=== PATIENT | female | born 1995 | race African-American/Black ===

== ENCOUNTER → 2022-12-07 | Outpatient (CLI) | payer BC, MEDICAID | END | disposition home or self-care (01) | LOC: RAH 14:17 | PROVIDERS: ATTEND Family Medicine Sports Medicine | DX: R20.2 Paresthesia of skin (principal) | CPT/HCPCS: 93880 ==

== ENCOUNTER → 2022-12-08 | Outpatient (CLI) | payer BC, MEDICAID | END | disposition home or self-care (01) | LOC: EDUNIT# 14:00 → RAH 14:00 | PROVIDERS: ATTEND Family Medicine Sports Medicine | DX: I34.0 Nonrheumatic mitral (valve) insufficiency (principal); R20.2 Paresthesia of skin | CPT/HCPCS: 93306 ==